=== PATIENT | male | born 1995 | race Caucasian/White ===

== ENCOUNTER → 2021-10-22 13:04 | Outpatient (CLI) | payer OTHER, SELFPAY ==
--- NOTE | 2021-10-22 | DI.RAD.S_ITS ---
PROCEDURE: XR LUMBAR SPINE 2-3V INDICATIONS: Lumbar Pain, Trauma Injury TECHNIQUE: 3 views of the lumbar spine were acquired. COMPARISON: None. FINDINGS: Bones: 5 [id number] vertebrae are present. There is normal bony alignment. No vertebral body compression fractures. No suspicious bony lesions. Soft tissues: Overlying bowel gas pattern is normal. No suspicious soft tissue calcifications. IMPRESSION: Normal lumbar spine radiographs Approved by: Skyler Lan M.D. on 10/22/2021 at 17:39
== END ==
PROVIDERS: Referring Provider Chiropractor; Visit Provider Chiropractor
DX: M54.51 Vertebrogenic low back pain (principal)
CPT/HCPCS: 72100